=== PATIENT | male | born 1970 | race Two or more races ===

== ENCOUNTER 2017-07-03 04:32 | Emergency (ER) | payer MEDICAID ==
[2017-07-03 05:15] LABS: BASOPHIL % 0.3 % (0-2); PLATELET COUNT 211 x10^3mcL (130-400)
[2017-07-03 05:20] LABS: CALCIUM 8.6 mg/dL (8.5-10.1); CARBON DIOXIDE 23.4 mmol/L (21-32); CHLORIDE SERUM 103 mmol/L (98-107); CREATININE SERUM 1.3 mg/dL (0.7-1.3); GFR1 > 60 mL/min; GLUCOSE SERUM 182 mg/dL (74-106); POTASSIUM SERUM 3.2 mmol/L (3.5-5.1); SODIUM SERUM 140 mmol/L (136-145)
[2017-07-03 05:26] LABS: ALBUMIN 3.8 g/dL (3.4-5.0); ALKALINE PHOSPHATASE 67 U/L (46-116); ALT/SGPT 43 U/L (16-63); AMYLASE 40 U/L (25-115); AST/SGOT 24 U/L (15-37); BILIRUBIN TOTAL 1.43 mg/dL (0.20-1.00); LIPASE 219 IU/L (73-393); TOTAL PROTEIN, SERUM 7.6 g/dL (6.4-8.2)
[2017-07-03 05:56] VITALS: BP 145/95
== END 2017-07-03 05:56 | disposition home or self-care (01) ==
LOC: ED 04:32
PROVIDERS: Emergency Medicine
DX: N23 Unspecified renal colic (principal)
CPT/HCPCS: 36415; J1170